=== PATIENT | female | born 1990 ===

== ENCOUNTER 2020-07-05 11:30 | Inpatient (IN) | payer OTHER ==
[~2020-07-05] VITALS: Ht 157.5 cm; Wt 73.5 kg
[2020-07-17] MEDS ORDERED: PRENATAL + DHA1 EAC1 PO (02:33)
== END 2020-07-19 12:40 | disposition home or self-care (01) | DRG 807 ==
LOC: LDR 07-17 02:08 → SURG-SUITE 07-17 02:08 → OB/GYN 07-22 11:30
PROVIDERS: ADMIT Obstetrics & Gynecology Maternal & Fetal Medicine; ATTEND Obstetrics & Gynecology Maternal & Fetal Medicine
PROC: 10E0XZZ Delivery of Products of Conception, External Approach (ICD-10-PCS; principal; 2020-07-17)
PROC: 0W8NXZZ Division of Female Perineum, External Approach (ICD-10-PCS; 2020-07-17)
PROC: 4A1HXFZ Monitoring of Products of Conception, Cardiac Rhythm, External Approach (ICD-10-PCS; 2020-07-17)
DX: O80 Encounter for full-term uncomplicated delivery (principal); Z37.0 Single live birth; Z3A.39 39 weeks gestation of pregnancy; Z20.828 Contact with and (suspected) exposure to other viral communicable diseases

== ENCOUNTER 2020-07-12 11:42 | Outpatient (CLI) | payer OTHER | END 2020-07-12 15:12 | disposition home or self-care (01) | LOC: NST 11:42 | PROVIDERS: ATTEND Obstetrics & Gynecology Maternal & Fetal Medicine | DX: Z34.83 Encounter for supervision of other normal pregnancy, third trimester (principal) ==